=== PATIENT | female | born 1930 | race Caucasian/White ===

== ENCOUNTER 2017-03-01 11:21 | Emergency (ER) | payer MEDICARE ==
[2017-03-01 12:48] LABS: Prothrombin Time 22.1 SEC (12.0-14.7)
== END 2017-03-01 13:55 | disposition home or self-care (01) ==
LOC: ERS 11:21
DX: R04.0 Epistaxis (principal); E03.9 Hypothyroidism, unspecified; E78.5 Hyperlipidemia, unspecified; I48.91 Unspecified atrial fibrillation; I10 Essential (primary) hypertension; Z79.01 Long term (current) use of anticoagulants; Z79.899 Other long term (current) drug therapy
CPT/HCPCS: 36415; 85610; 99283

== ENCOUNTER 2018-06-08 18:27 | Inpatient (IN) | payer MEDICARE ==
[2018-06-08 19:51] LABS: Hemoglobin 17.3 g/dL (12.0-16.0); Mean Corpuscular HGB CONC 32.4 g/dL (32.0-36.0); Mean Corpuscular Hemoglobin 29.9 pg (27.0-31.0); Mean Corpuscular Volume 92.4 fL (78.0-98.0); Mean Platelet Volume 11.4 fL (7.4-10.4); Platelet Count 166 thou/uL (130-400); RBC Distribution Width 13.6 % (11.5-14.5); Red Blood Cell (RBC) Count 5.78 mill/uL (4.20-5.40); White Blood Cell (WBC) Count 16.5 thou/uL (4.8-10.8)
[2018-06-08 20:03] LABS: ALT (SGPT) 71 U/L (8-55); AST (SGOT) 208 U/L (5-34); Albumin 3.7 g/dL (3.4-4.8); Alkaline Phosphatase 112 U/L (40-150); Anion Gap 17 mmol/L (10-20); BUN (Urea Nitrogen) 29 mg/dL (9.8-20.1); Bilirubin, Total 0.7 mg/dL (0.2-1.2); Calc. Creatinine Clearance 0 mL/min (70-130); Calcium 9.5 mg/dL (7.8-10.44); Carbon Dioxide 22 mmol/L (23-31); Chloride 102 mmol/L (98-107); Estimated GFR-MDRD 43; Globulin 3.9 g/dL (2.4-3.5); Glucose 122 mg/dL (83-110); Lipase 31 U/L (8-78); Protein, Total 7.6 g/dL (6.0-8.3); Sodium 136 mmol/L (136-145)
[2018-06-08 20:06] LABS: Band 10 % (5-11); Lymphocytes 11 % (21-51); MDiff Complete? YES; Monocytes 1 % (0-10); Neutrophil 78 % (42-75); Platelet Morphology Comment Appears Adequate; RBC Morphology Normal; Vacuoles SLIGHT
[2018-06-08 20:15] LABS: CK (CPK) 6199 U/L (29-168)
[2018-06-08 20:27] LABS: CKMB 28.8 ng/mL (0-6.6)
--- NOTE | 2018-06-08 20:27 | RAD ---
CHEST ONE VIEW: 06/08/18 HISTORY: Fall. Chest injury. COMPARISON: 01/26/16. FINDINGS: The cardiac silhouette is magnified by projection. Pulmonary vasculature is unremarkable. Mediastinum is midline. Dual lead left subclavian cardiac electronic device is in place. No confluent air space consolidation or evidence of pneumothorax. IMPRESSION: No active cardiopulmonary abnormalities are demonstrated. POS: SINGH
[2018-06-08 21:58] LABS: Bilirubin Negative (Negative); Blood, Urine Moderate (Negative); Clarity CLOUDY (Clear); Glucose, Urine (Dipstick) Negative (Negative); Leukocyte Small (Negative); Nitrite Negative (Negative); Protein, Urine (Dipstick) 30 mg/dL (Neg-Trace); Specific Gravity, Urine 1.018 (1.002-1.036); Urobilinogen 0.2 mg/dL (0.2-1.0); pH, Urine 5.5 (5.0-9.0)
[2018-06-08 21:59] LABS: Squamous Epithelial 0-3 HPF (0-3)
[2018-06-08 22:00] LABS: Pathc Cast-AUWi Flag 3.12 (0-2.49)
[2018-06-08 22:17] LABS: Other Casts/LPF 0-3 COARSE GRAN LPF (0-3 Hyaline)
[2018-06-08 22:20] LABS: Bacteria/HPF 2+ HPF (None Seen)
[2018-06-08] MEDS ORDERED: Ondansetron ODT 4 MG TAB PO PRN (23:28)
[2018-06-09] MEDS: Sodium Chloride 0.9% 1,000 ML IV SCH ×3 (00:28→20:35)
[2018-06-09] MEDS: cefTRIAXone\\ROCEPHIN 1 GM in Sodium Chloride 0.9% 100 ML IVPB SCH ×2 (00:32→23:41)
[2018-06-09 00:53] VITALS: BMI 25.5
[2018-06-09 06:13] LABS: #Lymphocytes 1.8 thou/uL (1.20-3.40); #Neutrophils 9.2 thou/uL (1.40-6.50); %Basophils 0.1 % (0.0-1.0); %Eosinophils 0.2 % (0.0-10.0); %Lymphocytes 15.2 % (21.0-51.0); %Monocytes 8.2 % (0.0-10.0); %Neutrophils 76.3 % (42.0-75.0); Hemoglobin 15.2 g/dL (12.0-16.0); Mean Corpuscular HGB CONC 32.7 g/dL (32.0-36.0); Mean Corpuscular Hemoglobin 29.4 pg (27.0-31.0); Mean Platelet Volume 10.2 fL (7.4-10.4); Platelet Count 180 thou/uL (130-400); RBC Distribution Width 13.7 % (11.5-14.5); Red Blood Cell (RBC) Count 5.17 mill/uL (4.20-5.40); White Blood Cell (WBC) Count 12.1 thou/uL (4.8-10.8)
[2018-06-09 06:30] LABS: Anion Gap 14 mmol/L (10-20); BUN (Urea Nitrogen) 26 mg/dL (9.8-20.1); Calc. Creatinine Clearance 55 mL/min (70-130); Calcium 8.4 mg/dL (7.8-10.44); Carbon Dioxide 20 mmol/L (23-31); Chloride 107 mmol/L (98-107); Estimated GFR-MDRD 64; Glucose 105 mg/dL (83-110); Potassium 4.3 mmol/L (3.5-5.1); Sodium 137 mmol/L (136-145)
[2018-06-09 07:32] LABS: Troponin I 0.074 ng/mL (< 0.028)
[2018-06-09] MEDS ORDERED: Levothyroxine Sodium 75 MCG TAB PO SCH (07:45)
--- NOTE | 2018-06-09 07:46 | HP ---
PRIMARY CARE PHYSICIAN: Benjamin Avila MD. CODE STATUS: Full code. TIME OF EVALUATION: 10:55 p.m. CHIEF COMPLAINT: The patient was found on the floor. HISTORY OF PRESENT ILLNESS: This is an [id number] female patient with past medical history of hypothyroidism, hyperlipidemia, atrial fibrillation, hypertension, previous stroke in 2014, came to the hospital after being found by the family at home. The last time seen normal was on Wednesday. No clear triggers. No alleviating factors. We are unable to get a good history from the patient as she is confused and does not recall details about what happened. Symptoms were severe, started suddenly. The patient has some rhabdomyolysis, has some scar on the face from previous surgery from trauma. Symptoms are associated with confusion. REVIEW OF SYSTEMS: Unable to fully obtain the review of systems since the patient is confused. PERSONAL AND MEDICAL HISTORY: Mentioned in HPI. FAMILY HISTORY: Reviewed and noncontributory for current presentation. PSYCHIATRIC HISTORY: No previous psych history. SOCIAL HISTORY: No alcohol. No drugs. No smoking history. The patient usually lives alone. KNOWN ALLERGIES: No known drug allergies. REPORTED MEDICATIONS: 1. Warfarin. 2. Pantoprazole. 3. Atorvastatin. 4. Levothyroxine. 5. Aspirin. 6. Lisinopril. PHYSICAL EXAMINATION: VITAL SIGNS: On presentation, blood pressure 141/103 with heart rate 132, respiratory rate was 16. Heart rate came down to 94 after hydration. Respiratory rate continues to be in the rate of 23. GENERAL APPEARANCE: The patient is alert, disoriented, not in any acute distress. HEENT: Eyes, normal conjunctivae. Moist oral mucosa. Anicteric. No JVD. The patient has some lacerations and swelling in the face probably from fall. CARDIOVASCULAR: The patient was tachy, regular rhythm. No murmurs. No gallop. No edema. ABDOMEN: Soft, normal bowel sounds. MUSCULOSKELETAL: Baseline range of motion and strength except for the bilateral knees. The patient has excoriations and redness from the fall. SKIN: Warm and intact. No pallor. No rash. No redness except for bilateral knees as described in the musculoskeletal section. Peripheral pulses are present. Capillary refill seems to intact. NEUROLOGIC: No evidence of any new focal weakness. Baseline speech. Cranial nerves seem to be intact. PSYCH: The patient is in good mood. The patient is confused and anxious. Suboptimal judgment. LABORATORY DATA: EKG was reviewed and disclosed with the performing physician from the ER. The patient has atrial fibrillation with some RVR, rate of 132. Cardiology, chest x-ray was negative. Labs were reviewed. The patient has white count 16.5, hemoglobin of 17.3, MCV 92.4, platelet count 166. Sodium 136, potassium 5.0, chloride 102, carbon dioxide 22, anion gap 17, BUN 29, creatinine 1.19 and the repeat one was normal. GFR 43, the repeat one was normal. Lactic acid on initial presentation was 4.1 and the repeat one was 2.0. LFTs were mildly elevated with elevation of the AST or ALT. CK was 6199 and troponin 0.062. Urine showed white count 4 to 6. ASSESSMENT AND PLAN: The patient has been placed in the hospital with the following medical problems: 1. Acute encephalopathy. The patient has change in mental status. She cannot recall the details of when she fell on the floor. This is likely secondary to underlying infection and dehydration. We will treat the underlying condition. 2. Lactic acidosis, likely secondary to underlying infection and has been corrected after hydration. The patient has been started on antibiotics. We will treat the underlying condition. 3. Dehydration, likely from being on the floor for 2 days and the reason why the patient may be hemoconcentrated. The patient had received hydration . 4. Rhabdomyolysis. The patient has CK total of 6199. We will continue hydration. We will monitor levels. We will treat accordingly. 5. Mildly elevated troponin. We will trend and treat accordingly. 6. Urinary tract infection. UA is positive. The patient presented with lactic acidosis. We will continue antibiotics, adjust as per culture sensitivities. 7. Uncontrolled blood pressure. The patient presented with systolic blood pressure in the 152, has received hydration, we will monitor. We will reconcile home medications once updated. 8. Deep venous thrombosis prophylaxis. 9. Hypercholesterolemia, we will reconcile home medications due to underlying rhabdo, low-cholesterol diet is advised. 10. History of gastroesophageal reflux disease. We will reconcile home medications. 11. History of chronic anticoagulation for atrial fibrillation, reconcile home medications. 12. Hypothyroidism, reconcile home medications. Continue hormone replacement. Job ID: [id number]
[2018-06-09] MEDS: Acetaminophen 325 MG TAB PO PRN ×2 (08:49→20:33)
[2018-06-09] MEDS ORDERED: Enoxaparin Sodium 40 MG/0.4 ML SYRINGE SC SCH (09:00)
[2018-06-09 10:23] LABS: Prothrombin Time 22.6 SEC (12.0-14.7)
--- NOTE | 2018-06-09 12:07 | CT ---
BRAIN CT WITHOUT IV CONTRAST: Date: 06-09-18 History: Syncopal episode with injury from a fall recently. Comparison: 11-09-15 FINDINGS: Bilateral atrophy and chronic white matter ischemic changes with some stable old low attenuation arriaga ges in the anterior limb of the internal capsule. Old infarct changes involving the posteromedial asp ect of the left temporal lobe adjacent to the trigone and temporal horn origin. No mass or midline sh ift. No acute hemorrhage. IMPRESSION: Evidence for old infarct changes. No mass or bleed or other acute process. POS: C
--- NOTE | 2018-06-09 13:20 | PQF ---
CLINICAL DOCUMENTATION IMPROVEMENT CLARIFICATION FORM: ICD-10 Updated PLEASE DO AN ADDENDUM TO THE PROGRESS NOTE WITH ANY DOCUMENTATION UPDATES OR ADDITIONS AND CARRY THROUGH TO DC SUMMARY. THANK YOU. DATE: 06/09/18 ATTN: DR. GUTHRIE Please exercise your independent, professional judgment in responding to the clarification form. Clinical indicators are provided on the bottom of this form for your review Please check appropriate box(s): [ ] Encephalopathy: Type: [ ] Acute [ ] Subacute [ ] Chronic Etiology: [ ] Hypertensive [ ] Metabolic [ ] Toxic [ ] Hepatic with Coma [ ] Hepatic w/o Coma [ ] Hypoxic [ ] Septic [ ] Drug induced: [ ] Unspecified [ ] in the setting of underlying dementia [ ] Other (please specify) [ ] Transient Alteration of Awareness [ ] Other diagnosis [ ] Unable to determine In addition, please specify: Present on Admission (POA): [ ] Yes [ ] No [ ] Unable to determine For continuity of documentation, please document condition throughout progress notes and discharge summary. Thank You. CLINICAL INDICATORS - SIGNS / SYMPTOMS / LABS H&P: "ACUTE ENCEPHALOPATHY" RISKS: DEHYDRATION ADVANCED AGE UTI TREATMENT: IV FLUIDS (ER-PRESENT) IV ROCEPHIN (06/08-PRESENT) TELEMETRY MONITORING BRAIN CT (This form is maintained as a part of the permanent medical record) 2014 [employer]. All Rights Reserved FRANK [email or web address] Office: [phone] [facility]
--- NOTE | 2018-06-09 14:40 | PDOC.PN ---
- Subjective Encounter Start Date: 06/09/18 Encounter Start Time: 07:00 Pt seen for followup re: syncope. - Objective Resuscitation Status - Order Detail: 06/08/18 23:28 Resuscitation Status Routine Resuscitation Status: FULL: Full Resuscitation MAR Reviewed: Yes Vital Signs & Weight: Vital Signs (12 hours) Temp Pulse Pulse Pulse Resp BP BP 06/09/18 12:13 97.3 F L 95 18 06/09/18 09:19 103 H 104 H 85/53 L 88/54 L 06/09/18 09:17 103 H 104 H 85/53 L 88/54 L 06/09/18 07:28 98.2 F 103 H 16 06/09/18 04:15 98.1 F 99 18 BP Pulse Ox 06/09/18 12:13 102/58 L 95 06/09/18 09:19 06/09/18 09:17 06/09/18 07:28 124/58 L 98 06/09/18 04:15 113/69 99 Weight Weight 162 lb I&O: 06/08/18 06/09/18 06/10/18 06:59 06:59 06:59 Intake Total 960 Output Total 400 Balance 560 Result Diagrams: 06/09/18 05:45 06/09/18 05:45 EKG Reviewed by me: Yes (Tele: NSR) Phys Exam - Physical Examination Constitutional: NAD HEENT: moist MMs, sclera anicteric, oral pharynx no lesions, 2+ tonsils Neck: no nodes, no JVD, supple, full ROM Respiratory: clear to auscultation bilateral Cardiovascular: RRR, no rub S1, S2 Gastrointestinal: soft, non-tender, no distention, positive bowel sounds Neurological: moves all 4 limbs Psychiatric: normal affect Deviation from normal: Oriented to person only, not to place or time Deviation from normal: Multiple bruises Dx/Plan (1) Syncope Code(s): R55 - SYNCOPE AND COLLAPSE Status: Acute Comment: Etiology unclear. Interrogate PPM. Consult cardiology. (2) Rhabdomyolysis Code(s): M62.82 - RHABDOMYOLYSIS Status: Acute Comment: Improving, continue IV fluids (3) Acute metabolic encephalopathy Code(s): G93.41 - METABOLIC ENCEPHALOPATHY Status: Acute Comment: Present on admission, improving (4) UTI (urinary tract infection) Status: Resolved Comment: continue antibiotics, follow cultures (5) HTN (hypertension) Code(s): I10 - ESSENTIAL (PRIMARY) HYPERTENSION Status: Chronic Comment: controlled (6) Hypothyroid Code(s): E03.9 - HYPOTHYROIDISM, UNSPECIFIED Status: Chronic Comment: continue levothyroxine - Plan * . Review of Systems - Review of Systems Constitutional: weakness. negative: fever, chills, sweats, malaise Cardiovascular: negative: chest pain, palpitations, orthopnea, paroxysmal nocturnal dyspnea, edema, light headedness Gastrointestinal: negative: Nausea, Vomiting, Abdominal Pain, Diarrhea, Constipation, Melena, Hematochezia Genitourinary: negative: Dysuria, Frequency, Incontinence, Hematuria, Retention Musculoskeletal: Shoulder Pain. negative: Neck Pain, Arm Pain, Back Pain, Hand Pain, Leg Pain, Foot Pain - Medications/Allergies Allergies/Adverse Reactions: Allergies Allergy/AdvReac Type Severity Reaction Status Date / Time No Known Allergies Allergy Verified 01/24/16 20:42 Medications: Current Medications Acetaminophen (Tylenol) 650 mg PO Q4H PRN PRN Reason: Headache/Fever/Mild Pain (1-3) Last Admin: 06/09/18 08:49 Dose: 650 mg Aspirin (Ecotrin) 81 mg PO HS [facility] Sodium Chloride (Normal Saline 0.9%) 1,000 mls @ 100 mls/hr IV .Q10H [facility] Last Admin: 06/09/18 08:50 Dose: 1,000 mls Ceftriaxone Sodium 1 gm/ (Sodium Chloride) 100 mls @ 200 mls/hr IVPB Q24HR [facility] Last Admin: 06/09/18 00:32 Dose: 100 mls Levothyroxine Sodium (Synthroid) 75 mcg PO 0600 [facility] Lisinopril (Zestril) 10 mg PO HS [facility] Miscellaneous Medication (Pharmacy To Dose) 0 each PO DAILY [facility] Last Admin: 06/09/18 08:50 Dose: Not Given Ondansetron HCl (Zofran Odt) 4 mg PO Q6H PRN PRN Reason: Nausea/Vomiting Pantoprazole Sodium (Protonix) 40 mg PO DAILY [facility] Last Admin: 06/09/18 08:49 Dose: 40 mg Sodium Chloride (Flush - Normal Saline) 10 ml IVF Q12HR [facility] Last Admin: 06/09/18 08:50 Dose: Not Given Sodium Chloride (Flush - Normal Saline) 10 ml IVF PRN PRN PRN Reason: Saline Flush Warfarin Sodium (Coumadin) 3 mg PO 1700 [facility]
[2018-06-09] MEDS: Warfarin Sodium 3 MG TAB PO SCH (16:58)
[2018-06-09] MEDS ORDERED: Warfarin Sodium 2.5 MG TAB PO SCH (17:00)
--- NOTE | 2018-06-09 18:34 | CON ---
DATE OF CONSULTATION: 06/09/2018 REASON FOR CONSULTATION: Atrial fibrillation, recent rhabdomyolysis. 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 HISTORY OF PRESENT ILLNESS: Ms. Pineda is a delightful 88-year-old woman. She was brought to the hospital after being found down on the ground in her home. The last time there was contact made was Wednesday. Someone called, and she did not answer, so they went into her house and found her down on the ground. The patient does not recall like falling or really does not recall much of what happened prior to this episode. She was very confused initially. The confusion is improving, but she still does not recall exactly what led to the events of her being down on the ground. REVIEW OF SYSTEMS: Not really accurate due to her confusion. FAMILY HISTORY: Noncontributory. PSYCHIATRIC HISTORY: Negative. SOCIAL HISTORY: No alcohol or drugs. No smoking. MEDICATIONS: Medications on her medicine list: 1. Coumadin. 2. Protonix. 3. Atorvastatin. 4. Levothyroxine. 5. Aspirin. 6. Lisinopril. 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 Gutierrez. PHYSICAL EXAMINATION: GENERAL: This is a delightful elderly woman. She has quite a bit of contusion in her face and some in her knees and elbows. She is more alert than previously described. She is not in any pain now, just feels "beat up." VITAL SIGNS: Blood pressure is low 102/58 now, but earlier it was 88/54, pulse in the 90s, irregular with atrial fibrillation. HEENT: Eyes; sclerae nonicteric. Mouth; mucous membranes moist. NECK: Supple. No lymphadenopathy. LUNGS: Clear. CARDIAC: Irregularly irregular. I do not hear murmur, rub, or gallop. ABDOMEN: Soft and nontender. EXTREMITIES: No clubbing or cyanosis. There is very mild edema. SKIN: Warm and dry. PERTINENT LABORATORY: Her hemoglobin was 17.3, now it is 15.2 after receiving fluid. Her creatinine went from 1.19 to 0.84. The CPK was very high at 6199 followed by 5423, but the troponin level was only 0.074. The previous echocardiograms done in 2016 showed normal left ventricular function, ejection fraction 55% to 60%. Previously had paroxysmal atrial fibrillation, now appears to be sustaining atrial fibrillation. Other pertinent laboratory, her INR was 2. ASSESSMENT: 1. Rhabdomyolysis for being down on the floor for several days. 2. Atrial fibrillation, now persistent/chronic. PLAN: 1. Continue with intravenous fluid in view of the rhabdomyolysis. 2. Continue Coumadin. 3. Dr. Kennedy will resume care tomorrow. 4. Echocardiogram also to be ordered. Job ID: [id number]
[2018-06-09] MEDS: Metoprolol Tartrate 25 MG TAB PO SCH (20:33)
[2018-06-09] MEDS: Aspirin 81 mg Enteric Coated Tablet PO SCH (20:34)
[2018-06-09] MEDS: Lisinopril 10 MG TAB PO SCH (20:34)
[2018-06-09] MEDS: traMADol HCl 50 MG TAB PO PRN (23:41)
[2018-06-10] MEDS: Sodium Chloride 0.9% 1,000 ML IV SCH ×2 (05:26→14:58)
[2018-06-10] MEDS: Levothyroxine Sodium 75 MCG TAB PO SCH (05:26)
[2018-06-10 06:27] LABS: #Basophils 0.1 thou/uL (0.0-0.2); #Eosinphils 0.1 thou/uL (0.0-0.7); #Lymphocytes 3.3 thou/uL (1.20-3.40); #Monocytes 0.9 thou/uL (0.11-0.59); #Neutrophils 5.5 thou/uL (1.40-6.50); %Basophils 0.7 % (0.0-1.0); %Eosinophils 0.7 % (0.0-10.0); %Lymphocytes 33.2 % (21.0-51.0); %Monocytes 9.6 % (0.0-10.0); %Neutrophils 55.9 % (42.0-75.0); Hemoglobin 13.5 g/dL (12.0-16.0); Mean Corpuscular HGB CONC 31.8 g/dL (32.0-36.0); Mean Corpuscular Hemoglobin 29.3 pg (27.0-31.0); Mean Corpuscular Volume 92.1 fL (78.0-98.0); Mean Platelet Volume 10.1 fL (7.4-10.4); Platelet Count 154 thou/uL (130-400); RBC Distribution Width 13.6 % (11.5-14.5); Red Blood Cell (RBC) Count 4.62 mill/uL (4.20-5.40); White Blood Cell (WBC) Count 9.8 thou/uL (4.8-10.8)
[2018-06-10 06:31] LABS: INR-International Normal Ratio 2.2; Prothrombin Time 24.7 SEC (12.0-14.7)
[2018-06-10 06:44] LABS: Anion Gap 10 mmol/L (10-20); BUN (Urea Nitrogen) 22 mg/dL (9.8-20.1); CK (CPK) 3607 U/L (29-168); Calc. Creatinine Clearance 59 mL/min (70-130); Calcium 7.7 mg/dL (7.8-10.44); Carbon Dioxide 22 mmol/L (23-31); Chloride 110 mmol/L (98-107); Estimated GFR-MDRD 69; Glucose 82 mg/dL (83-110); Potassium 3.7 mmol/L (3.5-5.1); Sodium 138 mmol/L (136-145)
[2018-06-10] MEDS: Metoprolol Tartrate 25 MG TAB PO SCH ×2 (08:31→20:19)
[2018-06-10] MEDS: Warfarin Sodium 3 MG TAB PO SCH (16:09)
--- NOTE | 2018-06-10 17:25 | PDOC.PN ---
- Subjective Encounter Start Date: 06/10/18 Encounter Start Time: 07:00 Pt seen for followup re: UTI. Feels better. No chest pain, shortness of breath , fevers or chills. - Objective Resuscitation Status - Order Detail: 06/08/18 23:28 Resuscitation Status Routine Resuscitation Status: FULL: Full Resuscitation MAR Reviewed: Yes Vital Signs & Weight: Vital Signs (12 hours) Temp Pulse Pulse Pulse Resp BP BP 06/10/18 15:02 98.1 F 81 20 06/10/18 14:58 81 84 116/64 115/60 06/10/18 11:08 97.8 F 81 22 H 06/10/18 07:20 97.9 F 79 15 BP Pulse Ox Pulse Ox 06/10/18 15:02 116/64 98 06/10/18 14:58 98 06/10/18 11:08 119/58 L 96 06/10/18 07:20 94/53 L 98 Weight Weight 164 lb 4.8 oz I&O: 06/09/18 06/10/18 06/11/18 06:59 06:59 06:59 Intake Total 960 3214 Output Total 400 1500 Balance 560 1714 Result Diagrams: 06/10/18 06:13 06/10/18 06:13 EKG Reviewed by me: Yes (Tele: demand V-paced) Phys Exam - Physical Examination Constitutional: NAD HEENT: moist MMs, sclera anicteric, oral pharynx no lesions, 2+ tonsils Neck: no nodes, no JVD, supple, full ROM Respiratory: clear to auscultation bilateral Cardiovascular: RRR, no rub S1, S2 Gastrointestinal: soft, non-tender, no distention, positive bowel sounds Musculoskeletal: edema present Neurological: moves all 4 limbs Psychiatric: normal affect Deviation from normal: Bruises Dx/Plan (1) UTI (urinary tract infection) Status: Acute Comment: follow cultures, continue ceftriaxone; Present on admission (error in yesterday's note) (2) Rhabdomyolysis Code(s): M62.82 - RHABDOMYOLYSIS Status: Acute Comment: Improving, continue IV fluids. CK 3607 today (3) Hypothyroid Code(s): E03.9 - HYPOTHYROIDISM, UNSPECIFIED Status: Chronic Comment: on levothyroxine (4) HTN (hypertension) Code(s): I10 - ESSENTIAL (PRIMARY) HYPERTENSION Status: Chronic Comment: controlled (5) Syncope Code(s): R55 - SYNCOPE AND COLLAPSE Status: Resolved (6) Acute metabolic encephalopathy Code(s): G93.41 - METABOLIC ENCEPHALOPATHY Status: Resolved - Plan * . Review of Systems - Review of Systems Constitutional: weakness. negative: fever, chills, sweats, malaise Respiratory: negative: Cough, Shortness of Breath, SOB with Excertion, Pleuritic Pain, Wheezing Cardiovascular: negative: chest pain, palpitations, orthopnea, paroxysmal nocturnal dyspnea, edema, light headedness Gastrointestinal: negative: Nausea, Vomiting, Abdominal Pain, Diarrhea, Constipation, Melena, Hematochezia Skin: negative: Rash, Lesions, Ramiro, Bruising - Medications/Allergies Allergies/Adverse Reactions: Allergies Allergy/AdvReac Type Severity Reaction Status Date / Time No Known Allergies Allergy Verified 01/24/16 20:42 Medications: Current Medications Acetaminophen (Tylenol) 650 mg PO Q4H PRN PRN Reason: Headache/Fever/Mild Pain (1-3) Last Admin: 06/09/18 20:33 Dose: 650 mg Aspirin (Ecotrin) 81 mg PO HS [facility] Last Admin: 06/09/18 20:34 Dose: 81 mg Sodium Chloride (Normal Saline 0.9%) 1,000 mls @ 100 mls/hr IV .Q10H [facility] Last Admin: 06/10/18 14:58 Dose: 1,000 mls Ceftriaxone Sodium 1 gm/ (Sodium Chloride) 100 mls @ 200 mls/hr IVPB Q24HR [facility] Last Admin: 06/09/18 23:41 Dose: 100 mls Levothyroxine Sodium (Synthroid) 75 mcg PO 0600 [facility] Last Admin: 06/10/18 05:26 Dose: 75 mcg Lisinopril (Zestril) 10 mg PO HS [facility] Last Admin: 06/09/18 20:34 Dose: 10 mg Metoprolol Tartrate (Lopressor) 12.5 mg PO BID [facility] Last Admin: 06/10/18 08:31 Dose: Not Given Miscellaneous Medication (Pharmacy To Dose) 0 each PO DAILY [facility] Last Admin: 06/10/18 08:25 Dose: Not Given Ondansetron HCl (Zofran Odt) 4 mg PO Q6H PRN PRN Reason: Nausea/Vomiting Pantoprazole Sodium (Protonix) 40 mg PO DAILY [facility] Last Admin: 06/10/18 08:30 Dose: 40 mg Sodium Chloride (Flush - Normal Saline) 10 ml IVF Q12HR [facility] Last Admin: 06/10/18 08:57 Dose: 10 ml Sodium Chloride (Flush - Normal Saline) 10 ml IVF PRN PRN PRN Reason: Saline Flush Tramadol HCl (Ultram) 50 mg PO Q6H PRN PRN Reason: Moderate Pain (4-6) Last Admin: 06/09/18 23:41 Dose: 50 mg Warfarin Sodium (Coumadin) 3 mg PO 1700 [facility] Last Admin: 06/10/18 16:09 Dose: 3 mg
[2018-06-10] MEDS: Lisinopril 10 MG TAB PO SCH (20:16)
[2018-06-10] MEDS: Aspirin 81 mg Enteric Coated Tablet PO SCH (20:17)
[2018-06-10] MEDS: traMADol HCl 50 MG TAB PO PRN (21:23)
[2018-06-11] MEDS: cefTRIAXone\\ROCEPHIN 1 GM in Sodium Chloride 0.9% 100 ML IVPB SCH ×2 (00:01→23:26)
[2018-06-11] MEDS: Sodium Chloride 0.9% 1,000 ML IV SCH (01:21)
[2018-06-11 04:59] LABS: INR-International Normal Ratio 2.1
[2018-06-11 05:03] LABS: #Basophils 0.1 thou/uL (0.0-0.2); #Eosinphils 0.1 thou/uL (0.0-0.7); #Lymphocytes 3.5 thou/uL (1.20-3.40); #Monocytes 0.8 thou/uL (0.11-0.59); #Neutrophils 4.2 thou/uL (1.40-6.50); %Basophils 0.7 % (0.0-1.0); %Eosinophils 1.5 % (0.0-10.0); %Lymphocytes 40.2 % (21.0-51.0); %Monocytes 9.4 % (0.0-10.0); %Neutrophils 48.2 % (42.0-75.0); Hemoglobin 13.8 g/dL (12.0-16.0); Mean Corpuscular HGB CONC 31.5 g/dL (32.0-36.0); Mean Corpuscular Hemoglobin 29.2 pg (27.0-31.0); Mean Corpuscular Volume 92.7 fL (78.0-98.0); Mean Platelet Volume 9.8 fL (7.4-10.4); Platelet Count 168 thou/uL (130-400); RBC Distribution Width 13.7 % (11.5-14.5); Red Blood Cell (RBC) Count 4.72 mill/uL (4.20-5.40); White Blood Cell (WBC) Count 8.8 thou/uL (4.8-10.8)
[2018-06-11 05:12] LABS: Anion Gap 11 mmol/L (10-20); BUN (Urea Nitrogen) 16 mg/dL (9.8-20.1); CK (CPK) 3363 U/L (29-168); Calc. Creatinine Clearance 62 mL/min (70-130); Calcium 7.7 mg/dL (7.8-10.44); Carbon Dioxide 24 mmol/L (23-31); Chloride 107 mmol/L (98-107); Estimated GFR-MDRD 73; Glucose 79 mg/dL (83-110); Potassium 3.8 mmol/L (3.5-5.1); Sodium 138 mmol/L (136-145)
[2018-06-11] MEDS: Levothyroxine Sodium 75 MCG TAB PO SCH (06:16)
[2018-06-11] MEDS: Metoprolol Tartrate 25 MG TAB PO SCH ×2 (08:57→20:24)
--- NOTE | 2018-06-11 10:55 | PDOC.PN ---
- Subjective Encounter Start Date: 06/11/18 Encounter Start Time: 07:00 Pt seen for followup re: UTI. Says she feels better. - Objective Resuscitation Status - Order Detail: 06/08/18 23:28 Resuscitation Status Routine Resuscitation Status: FULL: Full Resuscitation MAR Reviewed: Yes Vital Signs & Weight: Vital Signs (12 hours) Temp Pulse Resp BP Pulse Ox 06/11/18 07:40 98 F 78 18 147/75 H 95 06/11/18 03:14 98.6 F 68 18 117/58 L 96 Weight Weight 168 lb 3.2 oz I&O: 06/10/18 06/11/18 06/12/18 06:59 06:59 06:59 Intake Total 3214 3920 Output Total 1500 3075 Balance 1714 845 Result Diagrams: 06/11/18 04:14 06/11/18 04:14 EKG Reviewed by me: Yes (Tele: V-paced) Phys Exam - Physical Examination Constitutional: NAD HEENT: moist MMs Neck: supple a few bibasal crackles Cardiovascular: RRR Gastrointestinal: soft Neurological: moves all 4 limbs Psychiatric: normal affect Deviation from normal: bruises Dx/Plan (1) UTI (urinary tract infection) Status: Acute Comment: continue ceftriaxone (2) Rhabdomyolysis Code(s): M62.82 - RHABDOMYOLYSIS Status: Acute Comment: Improving. Pt appears to be in volume overload, will stop IV fluids (3) Hypothyroid Code(s): E03.9 - HYPOTHYROIDISM, UNSPECIFIED Status: Chronic Comment: continue levothyroxine (4) HTN (hypertension) Code(s): I10 - ESSENTIAL (PRIMARY) HYPERTENSION Status: Chronic Comment: controlled (5) Syncope Code(s): R55 - SYNCOPE AND COLLAPSE Status: Resolved (6) Acute metabolic encephalopathy Code(s): G93.41 - METABOLIC ENCEPHALOPATHY Status: Resolved - Plan * . Review of Systems - Review of Systems Cardiovascular: negative: chest pain, palpitations, orthopnea, paroxysmal nocturnal dyspnea, edema, light headedness Gastrointestinal: negative: Nausea, Vomiting, Abdominal Pain, Diarrhea, Constipation, Melena, Hematochezia - Medications/Allergies Allergies/Adverse Reactions: Allergies Allergy/AdvReac Type Severity Reaction Status Date / Time No Known Allergies Allergy Verified 01/24/16 20:42 Medications: Current Medications Acetaminophen (Tylenol) 650 mg PO Q4H PRN PRN Reason: Headache/Fever/Mild Pain (1-3) Last Admin: 06/09/18 20:33 Dose: 650 mg Aspirin (Ecotrin) 81 mg PO HS [facility] Last Admin: 06/10/18 20:17 Dose: 81 mg Ceftriaxone Sodium 1 gm/ (Sodium Chloride) 100 mls @ 200 mls/hr IVPB Q24HR [facility] Last Admin: 06/11/18 00:01 Dose: 100 mls Levothyroxine Sodium (Synthroid) 75 mcg PO 0600 [facility] Last Admin: 06/11/18 06:16 Dose: 75 mcg Lisinopril (Zestril) 10 mg PO HS [facility] Last Admin: 06/10/18 20:16 Dose: 10 mg Metoprolol Tartrate (Lopressor) 12.5 mg PO BID [facility] Last Admin: 06/11/18 08:57 Dose: 12.5 mg Miscellaneous Medication (Pharmacy To Dose) 0 each PO DAILY [facility] Last Admin: 06/11/18 08:58 Dose: Not Given Ondansetron HCl (Zofran Odt) 4 mg PO Q6H PRN PRN Reason: Nausea/Vomiting Pantoprazole Sodium (Protonix) 40 mg PO DAILY [facility] Last Admin: 06/11/18 08:57 Dose: 40 mg Sodium Chloride (Flush - Normal Saline) 10 ml IVF Q12HR [facility] Last Admin: 06/11/18 08:58 Dose: Not Given Sodium Chloride (Flush - Normal Saline) 10 ml IVF PRN PRN PRN Reason: Saline Flush Tramadol HCl (Ultram) 50 mg PO Q6H PRN PRN Reason: Moderate Pain (4-6) Last Admin: 06/10/18 21:23 Dose: 50 mg Warfarin Sodium (Coumadin) 3 mg PO 1700 [facility] Last Admin: 06/10/18 16:09 Dose: 3 mg
[2018-06-11] MEDS: Acetaminophen 325 MG TAB PO PRN (11:32)
--- NOTE | 2018-06-11 14:43 | PDOC.CTH ---
Cardiology Progress Note - Subjective No new issues. Doing well. - Objective Vital Signs Temp Pulse Resp BP Pulse Ox 06/11/18 11:34 98.1 F 75 18 134/75 95 06/11/18 07:40 98 F 78 18 147/75 H 95 06/11/18 03:14 98.6 F 68 18 117/58 L 96 Weight 168 lb 3.2 oz 06/10/18 06/11/18 06/12/18 06:59 06:59 06:59 Intake Total 3214 3920 Output Total 1500 3075 Balance 1714 845 - Physical Examination General/Neuro: alert & oriented x3, NAD Neck: no JVD present Lungs: CTA, unlabored respirations Heart: RRR Abdomen: NT/ND Extremities: other: (no edema) - Telemetry Telemetry Rhythm: Underl afib, V paced - Labs Result Diagrams: 06/11/18 04:14 06/11/18 04:14 Troponin/CKMB CK-MB (CK-2) 28.8 ng/mL (0-6.6) H* 06/08/18 19:34 Troponin I 0.074 ng/mL (< 0.028) H 06/09/18 05:45 - Assessment/Plan 1. Fall 2. Rhabdomyolysis. 3. Underlying afib 4. Presence of a PPM PLAN: - Will interrogate PPM make sure she did not have nay arrhythmias to account for her fall. - Will follow.
[2018-06-11] MEDS: Warfarin Sodium 3 MG TAB PO SCH (17:04)
[2018-06-11] MEDS: Lisinopril 10 MG TAB PO SCH (20:24)
[2018-06-11] MEDS: Aspirin 81 mg Enteric Coated Tablet PO SCH (20:24)
--- NOTE | 2018-06-11 21:52 | EKG ---
Test Reason : ER Blood Pressure : / mmHG Vent. Rate : 132 BPM Atrial Rate : 141 BPM P-R Int : 000 ms QRS Dur : 072 ms QT Int : 356 ms P-R-T Axes : 000 -35 053 degrees QTc Int : 527 ms Atrial fibrillation with rapid ventricular response Left axis deviation Septal infarct , age undetermined Abnormal ECG Confirmed by NEFTALI SANDS, MEDARDO ([id number]), technical writer and editor GUMARO SANDERS ([id number]) on 06/11/2018 9:51:36 PM Referred By: Confirmed By:MEDARDO LINDSAY MD
[2018-06-12] MEDS: traMADol HCl 50 MG TAB PO PRN (01:10)
[2018-06-12] MEDS: Acetaminophen 325 MG TAB PO PRN ×2 (03:27→12:28)
[2018-06-12 05:17] LABS: #Basophils 0.1 thou/uL (0.0-0.2); #Eosinphils 0.2 thou/uL (0.0-0.7); #Lymphocytes 2.9 thou/uL (1.20-3.40); #Monocytes 0.8 thou/uL (0.11-0.59); #Neutrophils 4.9 thou/uL (1.40-6.50); %Basophils 0.9 % (0.0-1.0); %Eosinophils 2.4 % (0.0-10.0); %Lymphocytes 32.2 % (21.0-51.0); %Neutrophils 55.5 % (42.0-75.0); Hemoglobin 13.7 g/dL (12.0-16.0); Mean Corpuscular HGB CONC 32.5 g/dL (32.0-36.0); Mean Corpuscular Hemoglobin 29.4 pg (27.0-31.0); Mean Corpuscular Volume 90.4 fL (78.0-98.0); Mean Platelet Volume 9.8 fL (7.4-10.4); Platelet Count 188 thou/uL (130-400); RBC Distribution Width 13.5 % (11.5-14.5); Red Blood Cell (RBC) Count 4.65 mill/uL (4.20-5.40); White Blood Cell (WBC) Count 8.9 thou/uL (4.8-10.8)
[2018-06-12 05:21] LABS: INR-International Normal Ratio 2.5; Prothrombin Time 26.6 SEC (12.0-14.7)
[2018-06-12 05:37] LABS: Anion Gap 12 mmol/L (10-20); BUN (Urea Nitrogen) 14 mg/dL (9.8-20.1); Calc. Creatinine Clearance 69 mL/min (70-130); Calcium 8.1 mg/dL (7.8-10.44); Carbon Dioxide 28 mmol/L (23-31); Chloride 104 mmol/L (98-107); Estimated GFR-MDRD 80; Glucose 89 mg/dL (83-110); Potassium 3.6 mmol/L (3.5-5.1); Sodium 140 mmol/L (136-145)
[2018-06-12] MEDS: Levothyroxine Sodium 75 MCG TAB PO SCH (06:03)
[2018-06-12] MEDS: Metoprolol Tartrate 25 MG TAB PO SCH ×2 (08:32→20:42)
--- NOTE | 2018-06-12 12:50 | PDOC.PN ---
- Subjective Encounter Start Date: 06/12/18 Encounter Start Time: 07:20 (720) Pt seen for followup re: UTI. - Objective Resuscitation Status - Order Detail: 06/08/18 23:28 Resuscitation Status Routine Resuscitation Status: FULL: Full Resuscitation MAR Reviewed: Yes Vital Signs & Weight: Vital Signs (12 hours) Temp Pulse Resp BP Pulse Ox 06/12/18 12:01 97.9 F 80 18 146/70 H 97 06/12/18 07:22 97.7 F 81 18 131/72 97 06/12/18 03:06 98.1 F 79 18 121/78 95 Weight Weight 165 lb 12.8 oz I&O: 06/11/18 06/12/18 06/13/18 06:59 06:59 06:59 Intake Total 3920 1472 Output Total 3075 3050 Balance 845 -1578 Result Diagrams: 06/12/18 04:19 06/12/18 04:19 EKG Reviewed by me: Yes (Tele: V-paced) Phys Exam - Physical Examination Constitutional: NAD HEENT: moist MMs Neck: supple Respiratory: clear to auscultation bilateral Cardiovascular: RRR Gastrointestinal: soft Neurological: moves all 4 limbs Psychiatric: normal affect Dx/Plan (1) UTI (urinary tract infection) Status: Acute Comment: Improved, discontinue antibiotics and observe (2) Rhabdomyolysis Code(s): M62.82 - RHABDOMYOLYSIS Status: Acute Comment: check CK level (3) Hypothyroid Code(s): E03.9 - HYPOTHYROIDISM, UNSPECIFIED Status: Chronic Comment: on levothyroxine (4) HTN (hypertension) Code(s): I10 - ESSENTIAL (PRIMARY) HYPERTENSION Status: Chronic Comment: controlled (5) Syncope Code(s): R55 - SYNCOPE AND COLLAPSE Status: Resolved (6) Acute metabolic encephalopathy Code(s): G93.41 - METABOLIC ENCEPHALOPATHY Status: Resolved - Plan * . Review of Systems - Review of Systems Respiratory: negative: Cough, Shortness of Breath, SOB with Excertion, Pleuritic Pain, Wheezing Cardiovascular: negative: chest pain, palpitations, orthopnea, paroxysmal nocturnal dyspnea, edema, light headedness - Medications/Allergies Allergies/Adverse Reactions: Allergies Allergy/AdvReac Type Severity Reaction Status Date / Time No Known Allergies Allergy Verified 01/24/16 20:42 Medications: Current Medications Acetaminophen (Tylenol) 650 mg PO Q4H PRN PRN Reason: Headache/Fever/Mild Pain (1-3) Last Admin: 06/12/18 12:28 Dose: 650 mg Aspirin (Ecotrin) 81 mg PO HS [facility] Last Admin: 06/11/18 20:24 Dose: 81 mg Ceftriaxone Sodium 1 gm/ (Sodium Chloride) 100 mls @ 200 mls/hr IVPB Q24HR [facility] Last Admin: 06/11/18 23:26 Dose: 100 mls Levothyroxine Sodium (Synthroid) 75 mcg PO 0600 [facility] Last Admin: 06/12/18 06:03 Dose: 75 mcg Lisinopril (Zestril) 10 mg PO HS [facility] Last Admin: 06/11/18 20:24 Dose: 10 mg Metoprolol Tartrate (Lopressor) 12.5 mg PO BID [facility] Last Admin: 06/12/18 08:32 Dose: 12.5 mg Miscellaneous Medication (Pharmacy To Dose) 0 each PO DAILY [facility] Last Admin: 06/12/18 08:34 Dose: Not Given Ondansetron HCl (Zofran Odt) 4 mg PO Q6H PRN PRN Reason: Nausea/Vomiting Pantoprazole Sodium (Protonix) 40 mg PO DAILY [facility] Last Admin: 06/12/18 08:32 Dose: 40 mg Sodium Chloride (Flush - Normal Saline) 10 ml IVF Q12HR [facility] Last Admin: 06/12/18 08:32 Dose: 10 ml Sodium Chloride (Flush - Normal Saline) 10 ml IVF PRN PRN PRN Reason: Saline Flush Tramadol HCl (Ultram) 50 mg PO Q6H PRN PRN Reason: Moderate Pain (4-6) Last Admin: 06/12/18 01:10 Dose: 50 mg Warfarin Sodium (Coumadin) 3 mg PO 1700 [facility] Last Admin: 06/11/18 17:04 Dose: 3 mg
[2018-06-12] MEDS: Warfarin Sodium 3 MG TAB PO SCH (16:11)
--- NOTE | 2018-06-12 17:55 | PDOC.CTH ---
Cardiology Progress Note - Subjective No new issues. - Objective Vital Signs Temp Pulse Resp BP Pulse Ox 06/12/18 16:07 97.7 F 77 18 140/83 98 06/12/18 12:01 97.9 F 80 18 146/70 H 97 06/12/18 07:22 97.7 F 81 18 131/72 97 Weight 165 lb 12.8 oz 06/11/18 06/12/18 06/13/18 06:59 06:59 06:59 Intake Total 3920 1472 Output Total 3075 3050 Balance 845 -1578 - Physical Examination General/Neuro: alert & oriented x3, NAD Neck: no JVD present Lungs: unlabored respirations Heart: RRR Abdomen: NT/ND Extremities: other: (no edema) - Telemetry Telemetry Rhythm: NSR - Labs Result Diagrams: 06/12/18 04:19 06/12/18 04:19 Troponin/CKMB CK-MB (CK-2) 28.8 ng/mL (0-6.6) H* 06/08/18 19:34 Troponin I 0.074 ng/mL (< 0.028) H 06/09/18 05:45 - Assessment/Plan 1. Fall 2. Rhabdomyolysis. 3. Underlying afib 4. Presence of a PPM PLAN: - No tachy arrhythmias on interrogation. - Will sign off. please call with any questions.
[2018-06-12] MEDS: Aspirin 81 mg Enteric Coated Tablet PO SCH (20:42)
[2018-06-12] MEDS: Lisinopril 10 MG TAB PO SCH (20:43)
[2018-06-13] MEDS: cefTRIAXone\\ROCEPHIN 1 GM in Sodium Chloride 0.9% 100 ML IVPB SCH ×2 (00:04→23:45)
[2018-06-13] MEDS: Acetaminophen 325 MG TAB PO PRN ×2 (00:11→20:30)
[2018-06-13 05:28] LABS: #Basophils 0.1 thou/uL (0.0-0.2); #Eosinphils 0.3 thou/uL (0.0-0.7); #Monocytes 0.9 thou/uL (0.11-0.59); #Neutrophils 4.9 thou/uL (1.40-6.50); %Basophils 0.9 % (0.0-1.0); %Eosinophils 3.2 % (0.0-10.0); %Lymphocytes 39.1 % (21.0-51.0); %Monocytes 8.7 % (0.0-10.0); %Neutrophils 48.2 % (42.0-75.0); Hemoglobin 14.3 g/dL (12.0-16.0); Mean Corpuscular HGB CONC 31.7 g/dL (32.0-36.0); Mean Corpuscular Hemoglobin 28.7 pg (27.0-31.0); Mean Corpuscular Volume 90.6 fL (78.0-98.0); Mean Platelet Volume 9.5 fL (7.4-10.4); Platelet Count 222 thou/uL (130-400); RBC Distribution Width 13.7 % (11.5-14.5); Red Blood Cell (RBC) Count 4.97 mill/uL (4.20-5.40); White Blood Cell (WBC) Count 10.1 thou/uL (4.8-10.8)
[2018-06-13] MEDS: Levothyroxine Sodium 75 MCG TAB PO SCH (05:37)
[2018-06-13 06:11] LABS: Anion Gap 17 mmol/L (10-20); BUN (Urea Nitrogen) 20 mg/dL (9.8-20.1); CK (CPK) 1407 U/L (29-168); Calc. Creatinine Clearance 55 mL/min (70-130); Calcium 8.5 mg/dL (7.8-10.44); Carbon Dioxide 21 mmol/L (23-31); Chloride 104 mmol/L (98-107); Estimated GFR-MDRD 65; Glucose 84 mg/dL (83-110); Potassium 4.6 mmol/L (3.5-5.1); Sodium 137 mmol/L (136-145)
[2018-06-13 07:07] LABS: INR-International Normal Ratio 2.5; Prothrombin Time 26.8 SEC (12.0-14.7)
[2018-06-13] MEDS: Metoprolol Tartrate 25 MG TAB PO SCH ×2 (09:11→20:30)
--- NOTE | 2018-06-13 15:12 | PDOC.PN ---
- Subjective Encounter Start Date: 06/13/18 Encounter Start Time: 10:00 Pt seen for followup re: UTI. Feels well, no complaints. - Objective Resuscitation Status - Order Detail: 06/08/18 23:28 Resuscitation Status Routine Resuscitation Status: FULL: Full Resuscitation MAR Reviewed: Yes Vital Signs & Weight: Vital Signs (12 hours) Temp Pulse Resp BP Pulse Ox 06/13/18 12:40 98.3 F 69 16 121/62 97 06/13/18 07:53 97.5 F L 83 18 143/95 H 95 06/13/18 04:00 97.8 F 72 16 147/75 H 96 Weight Weight 162 lb 3.2 oz I&O: 06/12/18 06/13/18 06/14/18 06:59 06:59 06:59 Intake Total 1472 1100 Output Total 3050 200 Balance -1578 900 Result Diagrams: 06/13/18 04:21 06/13/18 04:21 EKG Reviewed by me: Yes (Tele: V-paced rhythm) Phys Exam - Physical Examination Constitutional: NAD HEENT: moist MMs Neck: supple Respiratory: clear to auscultation bilateral Cardiovascular: RRR Gastrointestinal: soft Neurological: moves all 4 limbs Psychiatric: normal affect Deviation from normal: Bruises Dx/Plan (1) UTI (urinary tract infection) Status: Acute Comment: Improved (2) Rhabdomyolysis Code(s): M62.82 - RHABDOMYOLYSIS Status: Acute Comment: CK level improved significantly (3) Hypothyroid Code(s): E03.9 - HYPOTHYROIDISM, UNSPECIFIED Status: Chronic Comment: stable (4) HTN (hypertension) Code(s): I10 - ESSENTIAL (PRIMARY) HYPERTENSION Status: Chronic Comment: controlled (5) Syncope Code(s): R55 - SYNCOPE AND COLLAPSE Status: Resolved (6) Acute metabolic encephalopathy Code(s): G93.41 - METABOLIC ENCEPHALOPATHY Status: Resolved - Plan out of bed/ambulate * . Review of Systems - Review of Systems Respiratory: negative: Cough, Shortness of Breath, SOB with Excertion, Pleuritic Pain, Wheezing Cardiovascular: negative: chest pain, palpitations, orthopnea, paroxysmal nocturnal dyspnea, edema, light headedness - Medications/Allergies Allergies/Adverse Reactions: Allergies Allergy/AdvReac Type Severity Reaction Status Date / Time No Known Allergies Allergy Verified 11/11/16 20:42 Medications: Current Medications Acetaminophen (Tylenol) 650 mg PO Q4H PRN PRN Reason: Headache/Fever/Mild Pain (1-3) Last Admin: 06/13/18 00:11 Dose: 650 mg Aspirin (Ecotrin) 81 mg PO HS [facility] Last Admin: 06/12/18 20:42 Dose: 81 mg Ceftriaxone Sodium 1 gm/ (Sodium Chloride) 100 mls @ 200 mls/hr IVPB Q24HR [facility] Last Admin: 06/13/18 00:04 Dose: 100 mls Levothyroxine Sodium (Synthroid) 75 mcg PO 0600 [facility] Last Admin: 06/13/18 05:37 Dose: 75 mcg Lisinopril (Zestril) 10 mg PO HS [facility] Last Admin: 06/12/18 20:43 Dose: 10 mg Metoprolol Tartrate (Lopressor) 12.5 mg PO BID [facility] Last Admin: 06/13/18 09:11 Dose: 12.5 mg Miscellaneous Medication (Pharmacy To Dose) 0 each PO DAILY [facility] Last Admin: 06/13/18 09:12 Dose: Not Given Ondansetron HCl (Zofran Odt) 4 mg PO Q6H PRN PRN Reason: Nausea/Vomiting Pantoprazole Sodium (Protonix) 40 mg PO DAILY [facility] Last Admin: 06/13/18 09:12 Dose: 40 mg Sodium Chloride (Flush - Normal Saline) 10 ml IVF Q12HR [facility] Last Admin: 06/13/18 09:12 Dose: 10 ml Sodium Chloride (Flush - Normal Saline) 10 ml IVF PRN PRN PRN Reason: Saline Flush Last Admin: 06/13/18 00:04 Dose: 10 ml Tramadol HCl (Ultram) 50 mg PO Q6H PRN PRN Reason: Moderate Pain (4-6) Last Admin: 06/12/18 01:10 Dose: 50 mg Warfarin Sodium (Coumadin) 3 mg PO 1700 [facility] Last Admin: 06/12/18 16:11 Dose: 3 mg
[2018-06-13] MEDS: Warfarin Sodium 3 MG TAB PO SCH (16:34)
[2018-06-13] MEDS: Aspirin 81 mg Enteric Coated Tablet PO SCH (20:30)
[2018-06-13] MEDS: Lisinopril 10 MG TAB PO SCH (20:31)
[2018-06-14] MEDS: Acetaminophen 325 MG TAB PO PRN ×2 (00:19→05:11)
[2018-06-14] MEDS: Levothyroxine Sodium 75 MCG TAB PO SCH (05:11)
[2018-06-14 05:17] LABS: #Eosinphils 0.3 thou/uL (0.0-0.7); #Lymphocytes 3.6 thou/uL (1.20-3.40); #Monocytes 0.8 thou/uL (0.11-0.59); #Neutrophils 4.5 thou/uL (1.40-6.50); %Basophils 0.4 % (0.0-1.0); %Eosinophils 3.2 % (0.0-10.0); %Lymphocytes 38.7 % (21.0-51.0); %Monocytes 9.1 % (0.0-10.0); %Neutrophils 48.6 % (42.0-75.0); Hemoglobin 14.1 g/dL (12.0-16.0); Mean Corpuscular HGB CONC 32.9 g/dL (32.0-36.0); Mean Corpuscular Hemoglobin 29.8 pg (27.0-31.0); Mean Corpuscular Volume 90.7 fL (78.0-98.0); Mean Platelet Volume 9.4 fL (7.4-10.4); Platelet Count 223 thou/uL (130-400); RBC Distribution Width 13.5 % (11.5-14.5); Red Blood Cell (RBC) Count 4.71 mill/uL (4.20-5.40); White Blood Cell (WBC) Count 9.3 thou/uL (4.8-10.8)
[2018-06-14 05:21] LABS: INR-International Normal Ratio 2.6; Prothrombin Time 27.9 SEC (12.0-14.7)
[2018-06-14 05:43] LABS: Anion Gap 11 mmol/L (10-20); BUN (Urea Nitrogen) 19 mg/dL (9.8-20.1); CK (CPK) 716 U/L (29-168); Calc. Creatinine Clearance 66 mL/min (70-130); Calcium 8.4 mg/dL (7.8-10.44); Carbon Dioxide 31 mmol/L (23-31); Chloride 102 mmol/L (98-107); Estimated GFR-MDRD 80; Glucose 91 mg/dL (83-110); Potassium 3.7 mmol/L (3.5-5.1); Sodium 140 mmol/L (136-145)
[2018-06-14] MEDS: Metoprolol Tartrate 25 MG TAB PO SCH (08:24)
--- NOTE | 2018-06-14 12:17 | RAD ---
LEFT SHOULDER 3 VIEWS: HISTORY: Left shoulder pain. FINDINGS/IMPRESSION: There are degenerative changes in the acromioclavicular joint. Calcifications are seen in the rotato r cuff indicative of calcific tendinosis. POS: TPC
[2018-06-14 16:06] VITALS: BP 106/58; TEMP 97.9
--- NOTE | 2018-06-14 19:13 | DIS ---
DATE OF ADMISSION: 06/08/2018 DATE OF DISCHARGE: 06/14/2018 PRIMARY CARE PROVIDER: Benjamin Avila MD. DISCHARGE DIAGNOSES: 1. Acute metabolic encephalopathy. 2. Syncope. 3. Urinary tract infection. 4. Rhabdomyolysis. CONDITION OF THE PATIENT ON THE DAY OF DISCHARGE: Stable. I assessed Ms. Pineda on the day of discharge. She denies any chest pain or shortness of breath. Vital signs are stable. S1 and S2 are heard, regular. Lungs are clear to auscultation bilaterally. CONSULTATIONS DURING THIS HOSPITALIZATION: Cardiology, Dr. Quinn. DISCHARGE MEDICATIONS: 1. Aspirin 81 mg daily. 2. Lisinopril 10 mg daily. 3. Protonix 40 mg daily. 4. Warfarin 3 mg daily. 5. Lipitor 80 mg at bedtime. 6. Synthroid 75 mcg daily. 7. Lopressor 12.5 mg 2 times a day. HOSPITAL COURSE: Ms. Pineda is a pleasant 88-year-old lady, who was admitted to [facility] on June 08, 2018, for acute encephalopathy, lactic acidosis, dehydration, rhabdomyolysis, and urinary tract infection. Please refer to Dr. Carroll's History and Physical note, dated for further details. She was monitored on telemetry. She was seen by Cardiology Service. She received intravenous fluids and intravenous antibiotics. 2D echocardiogram showed left ventricular ejection fraction of 55% to 60%, mild mitral regurgitation, mild aortic regurgitation, and mild tricuspid regurgitation. She improved clinically, but was physically deconditioned. She was seen by Therapy Services. She is being discharged to [facility] in [place]. Final urine cultures grew 3 or more different organisms indicating probable contamination. Antibiotics were discontinued prior to discharge. On the day of discharge, Ms. Pineda has an unremarkable CBC, normal electrolytes, normal creatinine. CK is 716, decreased from 6199 on June 08, 2018. INR is 2.6. Many thanks for allowing me to participate in your patient's care. Please feel free to contact me with any questions or concerns. DISCHARGE DESTINATION: [facility]. TIME SPENT: Total amount of time spent coordinating this discharge: 31 minutes. Job ID: [id number]
== END 2018-06-14 16:12 | DRG 557 ==
LOC: ERS 18:27 → 2NO 20:35
PROVIDERS: ADMIT Hospitalist; ATTEND Hospitalist
DX: M62.82 Rhabdomyolysis (principal); G93.41 Metabolic encephalopathy; E87.2 Acidosis; N39.0 Urinary tract infection, site not specified; E03.9 Hypothyroidism, unspecified; I48.91 Unspecified atrial fibrillation; I10 Essential (primary) hypertension; E86.0 Dehydration; E78.00 Pure hypercholesterolemia, unspecified; K21.9 Gastro-esophageal reflux disease without esophagitis; Z79.01 Long term (current) use of anticoagulants; Z95.0 Presence of cardiac pacemaker; Z79.82 Long term (current) use of aspirin; Z79.899 Other long term (current) drug therapy
CPT/HCPCS: 36415; 70450; 71045; 80048; 80053; 81003; 81015; 82550; 82553; 83605; 83690; 84484; 85025; 85610; 87086; 93005; 93306; 94760; 96360; 96361; J0696; J1650; J7050